=== PATIENT | female | born 1990 | race Caucasian/White ===

== ENCOUNTER 2018-07-21 12:28 | Day surgery (SDC) | payer MEDICAID, SELFPAY ==
[2018-07-21 13:02] LABS: Hematocrit 39.7 % (37-47); Hemoglobin 13.3 g/dl (12.0-15.0); Mean Corp Hgb Conc 33.5 g/gl (32-36); Mean Corpuscular Hgb 31.1 pg (27.0-32.0); Mean Corpuscular Volume 92.8 fL (81-99); Mean Platelet Vol. 11.5 fl (6.2-12.0); Platelet Count 140 K/mm3 (150-450); RBC Distribution Width CV 12.1 % (11.6-14.6); RBC Distribution Width SD 40.8 fl (35.1-43.9); Red Blood Count 4.28 M/mm3 (4.2-5.4); White Blood Count 5.3 K/mm3 (4.4-11.0)
[2018-07-21 13:07] LABS: Scan Indicated on CBC? Y/N NO
[2018-07-21 13:13] VITALS: BP 99/58; PULSE 83; RESP 14; TEMP 37.9; O2SAT 100; BMI 22.3
[2018-07-21] MEDS: Doxycycline 100 MG CAPSULE 200 MG PO (13:22)
--- NOTE | 2018-07-21 13:49 | DCINST_ITS ---
Discharge Diet: No Restrictions Discharge Activity: Return to Normal Activity, May Shower, May Take a Tub Bath - in 2 weeks. Allergies/Adverse Reactions: Allergies No Known Allergies Allergy (Verified 07/20/18 08:50) Medications to take at Discharge RX: Ibuprofen 800 mg PO PRN PRN 07/20/18 Primary Care Physician: Panchito Tucker [Primary Care Provider] - Test Results: Test results from this visit will be discussed in further detail at your follow- up appointment, if applicable.
--- NOTE | 2018-07-21 13:49 | PCM.OPRPT ---
Report of Operation Date of Procedure: 07/21/18 Pre-Operative Diagnosis: missed Post-Operative Diagnosis: same Surgery/Procedure Performed:: suction D&C Description of Surgical Findings:: Uterus 10 week size- 7mm suction catheter used. Minimal bleeding. Type of Anesthesia:: MAC Specimen's removed: products of conception Drains: none Estimated Blood Loss (mL): 10 Fluids Replaced: 500 Description of Procedure: After informed consent was obtained patient was taken to OR and placed in supine position. Anesthesia was given. patient was placed in yellow fin stirrups and prepped and draped in normal sterile fashion. bladder was drained with straight catheter with approximately 30cc of clear yellow urine expelled. Weighted speculum placed in posterior fornix of vaginal, single tooth tenaculum was used to gently grasped anterior lip of cervix. . Cervix was then gently dilated in an incremental fashion. Was adequate dilation was achieved the 7mm suction catheter was placed. suction curettage performed until no tissue was expelled and cavity was deemed empty. A very gentle curettage was performed-no tissue noted. The tissue was then sent to pathology for examination. No complications. At this time procedure was deemed complete and successful. Tenaculum removed, speculum removed. Good hemostasis appreciated. Vaginal sweep was negative. Instrument and lap count correct x 2. I anticipate normal postoperative course. RH positive. Grafts/Implants Used: none - Complications none - Admit VTE Documentation VTE Present on Admission: Yes VTE Mechan Device Prophylaxis: SCD's
[2018-07-21 14:21] VITALS: BP 114/68; BP 99/58; PULSE 63; RESP 16; TEMP 36.4; O2SAT 100
--- NOTE | 2018-07-21 14:25 | POC_PTH ---
PATIENT: RAMON FLORES LOC: [facility] [place] U#:[id number] AGE/SX: 27/F ROOM: RE07/21/[address]: Dr. Laurence Pagan, MDDOB: 1990 BED: DIS: 07/21/2018 SPEC #: [id number] RECD: 07/21/18 15:06 STATUS: MYLES KEV #: [id number] ANDRY: 07/21/18 14:[address]: Laurence Pagan DEPT: SURGICAL PATHOLOGY RECD BY: Familia Baker ENTERED: 07/22/18 12:28 SP TYPE: PROD CONC OTHR DR: Dr. Panchito Tucker MD Tissues: Product of conception, NOS Procedures: Surgery Specimen Level IV HEADER OPERATION: Dilation and curettage, suction PRE-OP DIAGNOSIS: Missed AB 7 weeks TISSUE SUBMITTED: Products of conception MICROSCOPIC DIAGNOSIS Products of conception: Decidua, gestational endometrium and immature chorionic villi (products of conception). ABDIFATAH:taylor 07/25/18 MICROSCOPIC DESCRIPTION Slides are reviewed. GROSS DESCRIPTION Received in fixative is one container labeled with the patient's name and designated products of conception. The specimen consists of multiple irregular fragments of putnam soft tissue that in aggregate measure 5 x 4 x 0.5 cm. The specimen is totally submitted in one cassette. tissue is not identified. Corporate Specialist tissue is submitted in two cassettes. / ABDIFATAH:taylor 07/22/18 TC:5 CPT: 56338
[2018-07-21 14:26] VITALS: BP 102/64; BP 99/58; PULSE 68; RESP 16; O2SAT 100
[2018-07-21 14:30] VITALS: BP 97/61; BP 99/58; PULSE 54; RESP 16; O2SAT 100
[2018-07-21 14:36] VITALS: BP 96/65; BP 99/58; PULSE 50; RESP 16; TEMP 37; O2SAT 100
[2018-07-21 15:02] VITALS: BP 99/58
== END 2018-07-21 15:12 | disposition home or self-care (01) ==
LOC: SDC 12:29 → AC 12:52
PROVIDERS: Family Provider Family Medicine; PCP Family Medicine; Referring Provider Obstetrics & Gynecology; Visit Provider Obstetrics & Gynecology
PROC: (CPT 59820; principal; 2018-07-21 14:15)
DX: O02.1 Missed abortion (principal); D50.9 Iron deficiency anemia, unspecified; F17.200 Nicotine dependence, unspecified, uncomplicated; Z3A.01 Less than 8 weeks gestation of pregnancy
CPT/HCPCS: 59820; 85027; 86850; 86900; 88305; J7120; J2405

== ENCOUNTER 2018-10-21 05:55 | Day surgery (SDC) | payer MEDICAID, SELFPAY ==
--- NOTE | 2018-10-19 16:53 | PCM.HP.BLA ---
History and Physical Date of Admission: 10/21/18 Janet Garrett is a 27 year old female who presents AUB s/p Suction D&C for missed ab approx 3 mo ago. Pt has been having irregular and heavier bleeding since that time. Pt denies fever or chills. Ultrasound shows uterine mass But HCG was negative. Question regarding retained clot with inflammatory process vs possible Retained POC. Pt will be undergoing hysteroscopy D&C. Pt was placed on doxycycline. ? PAST?MEDICAL?HISTORY PAST MEDICAL HISTORY Diagnosis Date ? Chlamydia infection 2008 ? Depression ? ? History of, last on medication in 2007 ? Mitral valve disorders(424.0) ? ? Diagnosed age < 10 years, no surgery ? Papanicolaou smear of cervix with atypical squamous cells of undetermined significance (ASC-US) 2009,03/2014 ? Papanicolaou smear of cervix with low grade squamous intraepithelial lesion (LGSIL) 2008 ? Tobacco use ? ? Quit 06/20/2018 ? PAST?SURGICAL?HISTORY PAST SURGICAL HISTORY Procedure Laterality Date ? INSERT INTRAUTERINE DEVICE ? 2008 ? ORAL SURGERY PROCEDURE ? ? ? [place] teeth removal ? SUCTION D & C ? 07/21/2018 ? Missed AB ? FAMILY?HISTORY FAMILY HISTORY Problem Relation Age of Onset ? Alcohol/Drug Father ? ? ETOH ? Heart Paternal Grandfather ? ? Cancer Paternal Grandfather ? ? LIVER CANCER ? Alcohol/Drug Brother ? ? ETOH ? Diabetes Paternal Aunt ? ? SOCIAL?HISTORY Social History Socioeconomic History Marital status: Single Spouse name: Not on file Number of children: 1 Years of education: 12 Highest education level: Not on file Social Needs Financial resource strain: Not on file Food insecurity - worry: Not on file Food insecurity - inability: Not on file Transportation needs - medical: Not on file Transportation needs - non-medical: Not on file Occupational History Occupation: CHANGE MANAGEMENT MANAGER Employer: [employer] Tobacco Use Smoking status: Current Every Day Smoker Years: 5.00 Types: Cigarettes Quit date: 06/20/2018 Years since quittin.3 Smokeless tobacco: Never Used Substance and Sexual Activity Alcohol use: No Drug use: No Sexual activity: Yes Partners: Male control/protection: None Other Topics Concerns: Not on file Social History Narrative Not on file ? CURRENT?MEDICATIONS ? Current Outpatient Medications: doxycycline monohydrate (MONODOX) 100 mg capsule Take 1 capsule by mouth twice daily for 7 days. ibuprofen (MOTRIN) 800 mg tablet Take 1 tablet by mouth every 8 hours as needed. FOR PAIN. PNV no.95/ferrous fum/folic ac ( ORAL) Take by mouth. ondansetron (ZOFRAN) 4 mg tablet Take 4 mg by mouth every 8 hours as needed. ? No current facility-administered medications for this visit. Allergies As of Date: 10/19/2018 Allergen Noted Reaction SEASONAL [OTHER] 10/05/2008 ? Fully Assessed 10/19/2018 ? ? REVIEW OF SYSTEMS Abdomen: No abdominal pain Bladder: no dysuria.. Expanded ROS: GENERAL: Negative for fever Allergies and current medication updated:Yes ? EXAM: BP 100/58 Ht 5' 6 (1.68m) Wt 140 lb (63.5kg) LMP 09/28/2018 BMI 22.61 kg/(m^2). ? GENERAL: pleasant, female in no apparent distress HEENT: Normocephalic and atraumatic NECK: full range of motion DERMATOLOGY: Normal, without lesions, non-icteric and non-hirsute CARDIAC: regular rate and rhythm CHEST: Clear to auscultation Normal inspiratory effort NEURO: alert and oriented x3,exam grossly non-focal ? Thickened endometrium. ?Heterogeneous solid material within it contains echogenic and cystic foci. ?Molar is a diagnostic possibility. ? Correlation with hCG recommended. Findings discussed with Dr. Ryan at 1725 Aircraft Pilot: AMINAH ? Transcribe Date/Time: Oct 17 2018 ?5:22P Dictated by : ROXIE CHINO MD This examination was interpreted and the report reviewed and electronically signed by: ROXIE CHINO MD on Oct 17 2018 ?5:26PM ?EST ? ? Results-Findings ? * * *Final Report* * * DATE OF EXAM: Oct 17 2018 ?3:16PM ? [facility] ? 1060 ?- ?US FEMALE PELVIS TRANSVAG ?/ PROCEDURE REASON: multiple diagnoses ?? ? * * * * Physician Interpretation * * * * ?EXAMINATION: ? TRANSVAGINAL AND LIMITED TRANSABDOMINAL PELVIC ULTRASOUND CLINICAL HISTORY: ?Positive test in August. ?Persistent irregular bleeding TECHNIQUE: Sonography of the pelvis was performed by transvaginal and transabdominal (limited) techniques. ?Images were obtained and stored in a permanent archive. MQ: ?UFP_1 COMPARISON: None RESULT: Uterus size: 8.4 x 7.1 x 4.9 cm ?? ? -Orientation: Anteverted ?? ? -Myometrium: Normal sonographic appearance. ?? ? -Endometrial echo complex: 1.7 cm . ?The endometrium is heterogeneous. ?Scattered ,numerous ,echogenic and cystic foci within it. There is no evidence of gestational sac or fetus within the uterus. ?? ? -Cervix: normal Right ovary: 3.2 x 2.3 x 2.5 cm ?Normal sonographic appearance. Left ovary: 2.3 x 1.9 x 2.5 cm ?Normal sonographic appearance. Pelvis free fluid: None. ? ASSESSMENT AND PLAN: Encounter Diagnosis ? ? ICD-10-CM ? 1. Abnormal uterine bleeding (AUB) N93.9 ? ? 2. Consent signed for Hysteroscopy, D&C 3. Pt has been counseled on risks/benefits and alternatives of surgery including but not limited to anesthesia, bleeding, infection, injury to pelvic structures including bowel, bladder, ureters and vessels. Pt wishes to proceed with surgery at this time. 4. Post op motrin ordered. ? Laurence Pagan MD ?
--- NOTE | 2018-10-19 16:57 | HP.PCM_ITS ---
History and Physical Date of Admission: 10/21/18 Janet Garrett is a 27 year old female who presents AUB s/p Suction D&C for missed ab approx 3 mo ago. Pt has been having irregular and heavier bleeding since that time. Pt denies fever or chills. Ultrasound shows uterine mass But HCG was negative. Question regarding retained clot with inflammatory process vs possible Retained POC. Pt will be undergoing hysteroscopy D&C. Pt was placed on doxycycline. ? PAST?MEDICAL?HISTORY PAST MEDICAL HISTORY Diagnosis Date ? Chlamydia infection 2008 ? Depression ? ? History of, last on medication in 2007 ? Mitral valve disorders(424.0) ? ? Diagnosed age < 10 years, no surgery ? Papanicolaou smear of cervix with atypical squamous cells of undetermined significance (ASC-US) 2009,03/2014 ? Papanicolaou smear of cervix with low grade squamous intraepithelial lesion (LGSIL) 2008 ? Tobacco use ? ? Quit 06/20/2018 ? PAST?SURGICAL?HISTORY PAST SURGICAL HISTORY Procedure Laterality Date ? INSERT INTRAUTERINE DEVICE ? 2008 ? ORAL SURGERY PROCEDURE ? ? ? [place] teeth removal ? SUCTION D & C ? 07/21/2018 ? Missed AB ? FAMILY?HISTORY FAMILY HISTORY Problem Relation Age of Onset ? Alcohol/Drug Father ? ? ETOH ? Heart Paternal Grandfather ? ? Cancer Paternal Grandfather ? ? LIVER CANCER ? Alcohol/Drug Brother ? ? ETOH ? Diabetes Paternal Aunt ? ? SOCIAL?HISTORY Social History Socioeconomic History Marital status: Single Spouse name: Not on file Number of children: 1 Years of education: 12 Highest education level: Not on file Social Needs Financial resource strain: Not on file Food insecurity - worry: Not on file Food insecurity - inability: Not on file Transportation needs - medical: Not on file Transportation needs - non-medical: Not on file Occupational History Occupation: HIGH SCHOOL TEACHER Employer: [employer] Tobacco Use Smoking status: Current Every Day Smoker Years: 5.00 Types: Cigarettes Quit date: 06/20/2018 Years since quittin.3 Smokeless tobacco: Never Used Substance and Sexual Activity Alcohol use: No Drug use: No Sexual activity: Yes Partners: Male control/protection: None Other Topics Concerns: Not on file Social History Narrative Not on file ? CURRENT?MEDICATIONS ? Current Outpatient Medications: doxycycline monohydrate (MONODOX) 100 mg capsule Take 1 capsule by mouth twice daily for 7 days. ibuprofen (MOTRIN) 800 mg tablet Take 1 tablet by mouth every 8 hours as neede d. FOR PAIN. PNV no.95/ferrous fum/folic ac ( ORAL) Take by mouth. ondansetron (ZOFRAN) 4 mg tablet Take 4 mg by mouth every 8 hours as needed. ? No current facility-administered medications for this visit. Allergies As of Date: 10/19/2018 Allergen Noted Reaction SEASONAL [OTHER] 10/05/2008 ? Fully Assessed 10/19/2018 ? ? REVIEW OF SYSTEMS Abdomen: No abdominal pain Bladder: no dysuria.. Expanded ROS: GENERAL: Negative for fever Allergies and current medication updated:Yes ? EXAM: BP 100/58 Ht 5' 6 (1.68m) Wt 140 lb (63.5kg) LMP 09/28/2018 BMI 22.61 kg/(m^2). ? GENERAL: pleasant, female in no apparent distress HEENT: Normocephalic and atraumatic NECK: full range of motion DERMATOLOGY: Normal, without lesions, non-icteric and non-hirsute CARDIAC: regular rate and rhythm CHEST: Clear to auscultation Normal inspiratory effort NEURO: alert and oriented x3,exam grossly non-focal ? Thickened endometrium. ?Heterogeneous solid material within it contains echogenic and cystic foci. ?Molar is a diagnostic possibility. ? Correlation with hCG recommended. Findings discussed with Dr. Ryan at 1725 Supervisor Phosphatic Fertilizer: AMINAH ? Transcribe Date/Time: Oct 17 2018 ?5:22P Dictated by : ROXIE CHINO MD This examination was interpreted and the report reviewed and electronically signed by: ROXIE CHINO MD on Oct 17 2018 ?5:26PM ?EST ? ? Results-Findings ? * * *Final Report* * * DATE OF EXAM: Oct 17 2018 ?3:16PM ? [facility] ? 1060 ?- ?US FEMALE PELVIS TRANSVAG ?/ PROCEDURE REASON: multiple diagnoses ?? ? * * * * Physician Interpretation * * * * ?EXAMINATION: ? TRANSVAGINAL AND LIMITED TRANSABDOMINAL PELVIC ULTRASOUND CLINICAL HISTORY: ?Positive test in August. ?Persistent irregular bleeding TECHNIQUE: Sonography of the pelvis was performed by transvaginal and transabdominal (limited) techniques. ?Images were obtained and stored in a permanent archive. MQ: ?UFP_1 COMPARISON: None RESULT: Uterus size: 8.4 x 7.1 x 4.9 cm ?? ? -Orientation: Anteverted ?? ? -Myometrium: Normal sonographic appearance. ?? ? -Endometrial echo complex: 1.7 cm . ?The endometrium is heterogeneous. ?Scattered ,numerous ,echogenic and cystic foci within it. There is no evidence of gestational sac or fetus within the uterus. ?? ? -Cervix: normal Right ovary: 3.2 x 2.3 x 2.5 cm ?Normal sonographic appearance. Left ovary: 2.3 x 1.9 x 2.5 cm ?Normal sonographic appearance. Pelvis free fluid: None. ? ASSESSMENT AND PLAN: Encounter Diagnosis ? ? ICD-10-CM ? 1. Abnormal uterine bleeding (AUB) N93.9 ? ? 2. Consent signed for Hysteroscopy, D&C 3. Pt has been counseled on risks/benefits and alternatives of surgery including but not limited to anesthesia, bleeding, infection, injury to pelvic structures including bowel, bladder, ureters and vessels. Pt wishes to proceed with surgery at this time. 4. Post op motrin ordered. ? Laurence Pagan MD ?
[2018-10-21] VITALS (7 sets, daily range): BP systolic 93–112; BP diastolic 47–68; PULSE 53–68; RESP 16–18; TEMP 36.4–37.3; O2SAT 100; BMI 22.2
[2018-10-21 06:24] LABS: Internal QC Validated? YES +Cl - CLEAR BKGD; Pregnancy, Urine Negative Negative
--- NOTE | 2018-10-21 07:25 | PCM.DC.D&C ---
Discharge Diet: No Restrictions Discharge Activity: Return to Normal Activity, May Shower, May Take a Tub Bath - in 2 weeks. May resume sexual activity in: 2 weeks Call your doctor if you observe: Fever of 101 or Higher, Using more than one pad per hour Allergies/Adverse Reactions: Allergies No Known Allergies Allergy (Verified 10/19/18 13:43) Medications to take at Discharge Ibuprofen 800 mg PO PRN PRN 07/20/18 Primary Care Physician: Panchito Tucker [Primary Care Provider] - Test Results: Test results from this visit will be discussed in further detail at your follow-up appointment, if applicable. Please Follow Up With: Laurence Pagan MD When: 2 weeks
--- NOTE | 2018-10-21 07:30 | EMB_PTH ---
PATIENT: RAMON FLORES LOC: [facility] – [place] U#:[id number] AGE/SX: 27/F ROOM: RE10/21/[address]: Dr. Laurence Pagan, MDDOB: 1990 BED: DIS: 10/21/2018 SPEC #: [id number] RECD: 10/21/18 11:19 STATUS: MYLES KEV #: [id number] ANDRY: 10/21/18 07:[address]: Laurence Pagan DEPT: SURGICAL PATHOLOGY RECD BY: Familia Baker ENTERED: 10/21/18 12:38 SP TYPE: ENDOM BX/C OTHR DR: Dr. Panchito Tucker MD Tissues: Endometrium, NOS Procedures: Surgery Specimen Level IV HEADER OPERATION: Hysteroscopy, dilation and curettage PRE-OP DIAGNOSIS: Abnormal uterine bleeding TISSUE SUBMITTED: Endometrial curettings MICROSCOPIC DIAGNOSIS Endometrial curettings: Fragments of inflamed benign endometrial tissue. Fragments of infarcted decidual tissue, immature chorionic villi tissue and blood clots (consistent with retained products of conception). See comment. SJ:taylor 10/24/18 COMMENT The smaller fragments of tissue consist of endometrial tissue and infarcted immature chorionic villi tissue and decidual tissue. The larger ovoid fragment of tissue entirely consists of infarcted immature chorionic villi tissue with calcification and infarcted decidual tissue embedded in the blood clot. Please make reference to previous specimen ([id number]) products of conception with diagnosis of decidua, gestational endometrium and immature chorionic villi (products of conception). Clinical correlation and appropriate follow up are necessary. Case has been reviewed in consultation with Dr. Spivey who concurs with the above diagnosis. IDC:AM MICROSCOPIC DESCRIPTION Slides are reviewed. GROSS DESCRIPTION Received in fixative is one container labeled with the patient's name and designated endometrial curettings. The specimen consists of an ovoid fragment of reddish-putnam tissue measuring 3 x 2.5 x 1.8 cm. Also present separate in the container are multiple irregular fragments of reddish-putnam soft tissue aggregating to 2 x 1.5 x 0.2 cm. Dining Room Attendant Cafeteria sections are submitted as follows: 1 - smaller fragments of tissue in the container, 2-4 - outbound telemarketing representative sections of nodular fragments of tissue in container. / AAMIR:taylor 10/21/18 TC:5 CPT: 16972
--- NOTE | 2018-10-21 07:53 | OP.PCM_ITS ---
Report of Operation Date of Procedure: 10/21/18 Pre-Operative Diagnosis: AUB Post-Operative Diagnosis: AUB Surgery/Procedure Performed:: hysteroscopy, D&C Description of Surgical Findings:: large well organized clot sitting in posterior vagina on exam- approx 4cm. ON hysteroscopy some tiny calcifications studding noted at uterine fundus, both ostia visualized, no masses. small amount of endometrial tissue noted Type of Anesthesia:: MAC Special Medications: none Specimen's removed: Endometrial curettings Drains: none Estimated Blood Loss (mL): 5 Fluids Replaced: 500 Description of Procedure: Informed consent was obtained the patient was taken the operating room she was placed in supine position. She was given anesthesia. She was then placed in the [facility] where she was prepped and draped in the normal sterile fashion. EUA performed- large mass removed from posterior fornix of vagina- mass appeared to be well organized clot. At this time the weighted speculum was placed in the posterior fornix of vagina. Single-tooth tenaculum was used to gently grasp the anterior lip the cervix. At this time the uterine cavity was sounded to approximately 8 cm. Gentle dilatation was performed once adequate dilatation of the cervix was achieved the hysteroscope using normal saline as a distention medium was placed. tiny calcifications noted on uterine funuds taht appeared in a studding presentation. small amount of Endometrial tissue . Otherwise no gross abnormalities. Tubal ostia visualized. This time hysteroscopy was complete. Gentle Sharp curettage was performed. small amount of endometrial tissue removed. This will be sent to pathology for evaluation including the well organized clot. Procedure was deemed complete successful there are no complications. Anticipated normal postoperative course. Instrument lap count correct ?2. vaginal sweep negative. Grafts/Implants Used: none - Complications none - Admit VTE Documentation VTE Present on Admission: Yes VTE Mechan Device Prophylaxis: SCD's VTE Pharm Prophylaxis ordered?: No Reason prophylaxis not ordered:: Treatment Not Indicated
[2018-10-21] MEDS: HYDROcodone Bitartrate/Apap 5/325 Tablet PO (08:40)
== END 2018-10-21 09:15 | disposition home or self-care (01) ==
LOC: SDC 05:56 → AC 05:58
PROVIDERS: Anesthesiology; Family Provider Family Medicine; PCP Family Medicine; Referring Provider Obstetrics & Gynecology; Visit Provider Obstetrics & Gynecology
PROC: 0UDB8ZZ Extraction of Endometrium, Via Natural or Artificial Opening Endoscopic (ICD-10-PCS; CPT 58558; principal; 2018-10-21 07:15)
DX: N93.9 Abnormal uterine and vaginal bleeding, unspecified (principal); F17.210 Nicotine dependence, cigarettes, uncomplicated; D64.9 Anemia, unspecified
CPT/HCPCS: 58558; 81025; 88305; J7120; J2405

== ENCOUNTER → 2019-05-08 11:42 | Outpatient (CLI) | payer MEDICAID, SELFPAY ==
[2018-10-21 06:48] VITALS: BMI 22.2
== END ==
PROVIDERS: Family Provider Family Medicine; PCP Family Medicine; Referring Provider Obstetrics & Gynecology; Visit Provider Obstetrics & Gynecology
DX: Z31.430 Encounter of female for testing for genetic disease carrier status for procreative management (principal)
CPT/HCPCS: 36415

== ENCOUNTER 2019-12-19 20:40 | Outpatient (CLI) | payer MEDICAID, SELFPAY ==
[2018-10-21 06:48] VITALS: BMI 22.2
[2019-12-19 20:47] VITALS: BMI 25.5
[2019-12-19 20:58] VITALS: BP 109/66; PULSE 78; TEMP 36.1
[2019-12-19 21:56] VITALS: TEMP 36
[2019-12-19 21:57] VITALS: BP 100/54; PULSE 63
[2019-12-19 22:42] VITALS: BP 98/61; PULSE 73; TEMP 36.1
--- NOTE | 2019-12-21 08:06 | OB.TRI.NOTE ---
History of Present Illness Date of Service: 12/19/19 Was patient seen by the physician?: No Reason For Visit: R/O LABOR Date of Service: 12/19/19 Final RAFAEL: 12/23/19 Gestational age: 39 Weeks and 5 Days History of Present Illness: @ 39.3 c/o contractions Allergies No Known Allergies Allergy (Verified 12/19/19 21:06) Physical Exam Vitals: Vital Signs Temp Pulse BP 97.0 F L 73 98/61 12/19/19 22:42 12/19/19 22:42 12/19/19 22:42 Presentation: Cephalic Cervix Dilation (cm): 3 NST - FHR Rate Baby A Baseline: 120 Variability:: Moderate Accelerations:: 15 x 15 Decelerations:: None NST Reactive:: Yes FHR Category:: Category I Uterine Activity:: q2-4 Impression/Plan @ 39.3 wks, false labor 1) dc home- vaginal exam unchanged
== END 2019-12-19 23:05 | disposition home or self-care (01) ==
LOC: WPOUT 20:45 → OBT 20:45
PROVIDERS: PCP Family Medicine; Visit Provider Obstetrics & Gynecology
DX: O47.1 False labor at or after 37 completed weeks of gestation (principal); Z3A.39 39 weeks gestation of pregnancy
CPT/HCPCS: 59025; 59050; 99218; G0378

== ENCOUNTER 2019-12-23 05:10 | Inpatient (IN) | payer MEDICAID, SELFPAY ==
[2019-12-23] VITALS (18 sets, daily range): BP systolic 94–120; BP diastolic 53–74; PULSE 48–77; RESP 14–16; TEMP 36.2–37.2; O2SAT 96–99; BMI 25.4
[2019-12-23] MEDS: Lactated Ringers 1,000 ML 50 ML IV (05:25)
[2019-12-23 06:14] LABS: Absolute Lymphocyte Count 2.16 X10^3/uL (0.83-4.51); Basophil# 0.03 X10^3/uL; Basophil% 0.4 % (0-1); Eosinophil# 0.13 X10^3/uL; Eosinophils% 1.6 % (0-5); Hematocrit 36.3 % (37-47); Hemoglobin 12.1 g/dL (12.0-15.0); Lymphocyte # 2.16 X10^3/ul (4.0); Lymphocyte % 27.3 % (19-41); Mean Corp Hgb Conc 33.3 g/dL (32-36); Mean Corpuscular Hgb 33.3 pg (27.0-32.0); Mean Platelet Vol. 12.1 fl (6.2-12.0); Monocyte# 0.56 X10^3/uL; Monocyte% 7.1 % (0-10); NRBC Flagged by Analyzer 0 % (0-5); Neutrophil % 63.1 % (47-70); POSITIVE COUNT YES; RBC Distribution Width CV 12.5 % (11.6-14.6); RBC Distribution Width SD 45.1 fl (35.1-43.9); Red Blood Count 3.63 M/mm3 (4.2-5.4); White Blood Count 7.9 K/mm3 (4.4-11.0)
[2019-12-23 06:24] LABS: Differential Indicated SCAN CRITERIA MET
[2019-12-23 07:01] LABS: Platelet Count 135 K/mm3 (150-450)
[2019-12-23] MEDS: Oxytocin 30 units/NS 500 ml 30 UNITS/500 ML IV.SOLN IV (07:06)
[2019-12-23] MEDS: Oxytocin 30 units/NS 500 ml 30 UNITS/500 ML IV.SOLN 334 UNITS IV (09:02)
--- NOTE | 2019-12-23 09:15 | PCM.OPRPT ---
Vaginal Delivery Maternal Presentation: Active Labor Amniotic Membrane Rupture Type: Artificial Amniotic Fluid Description: Clear Final RAFAEL: 12/23/19 Final RAFAEL Source: US <20 weeks Gestational age: 40 Weeks and 0 Days Date of Procedure: 12/23/19 Pre-Operative Diagnosis: labor Post-Operative Diagnosis: same Surgery/ Procedure Performed: Spontaneous Vaginal Delivery Type of Anesthesia: None Description of Procedure: A vigorous female was delivered ALYSE over intact perineum. The remainder the was delivered with maternal pushing and gentle traction only in less than 15 seconds. The Pitocin infusion was initiated for active management of the third stage. The cord was clamped and cut after pulsations ceased. The infant was attended to by the waiting nursing staff. The placenta was delivered spontaneously and intact. The cervix and vagina were intact. The first-degree vaginal laceration was hemostatic and not repaired. Sponge and needle counts were correct. A vaginal sweep was completed by me. Presentation: ALYSE Placental Delivery Description: Spontaneous Placenta Disposition: [facility] Cord Vessel Description: 3 Vessels Cord Entanglement: None Drain: - - none Estimated Blood Loss: 400 Infant A gender: Female - Eveline Episiotomy Description: None Laceration: 1st degree - vaginal Medications given after delivery: IV Pitocin Complications: None
--- NOTE | 2019-12-23 09:17 | PCM.HP.OB ---
History Date of Admission: 10/21/18 Final RAFAEL: 12/23/19 Final RAFAEL Source: US <20 weeks Gestational age: 40 Weeks and 0 Days History of this : This is a 29 year-old, 5 para 1-0-3-1 presents at 40 weeks gestation complaining contractions that increased at approximately 3 AM. She had no gross vaginal bleeding. She is had good movement. Her abdomen was found to be 4 cm and 80% effaced but frances painfully and was admitted for labor. During the , patient had hour but a normal 3-hour glucose tolerance test. Found to be rubella nonimmune, and she was treated for HPV. She was smoking during the but stopped it during the . Had a history of one previously uncomplicated vaginal delivery in the past. Allergies No Known Allergies Allergy (Verified 12/19/19 21:06) Home Medications: Home Medications Tablet 1 tab PO DAILY 12/19/19 Smoking Status: Former smoker Alcohol: None Number of Fetus(es): 1 History Past Pregnancies: Past Pregnancies Delivery Date Name GA/ Weeks Outcome Route Wt Infant Sex Labor Length Anesthesia Delivery Location Provider FOB Expected Infant Delivery Method: Spontaneous Vaginal Review of Systems Constitutional: Denies: Chills, Fever Eyes: Denies: Blurred vision Cardiovascular: Denies: Chest Pain Respiratory: Denies: Shortness of Breath Gastrointestinal: Denies: Diarrhea Genitourinary: Denies: Dysuria Skin: Denies: Rash Hematologic/ Lymphatic: Denies: Anemia Physical Exam Vitals: Vital Signs Temp Pulse BP Pulse Ox 98.0 F 65 105/57 L 99 12/23/19 06:41 12/23/19 09:13 12/23/19 09:13 12/23/19 06:41 General: Alert, Cooperative, No apparent distress Cardiovascular: Regular rate Lungs: Normal air movement Abdomen: Soft, Non Tender, Non-Distended, Gravid Extremities:: No edema Neurological: Neuro grossly intact, Muscle tone normal Assessment/Plan This is a 29 year-old, 5 para 1 at 40 weeks with spontaneous labor. Patient declined rapid COVID19 testing. Estimated weight is less than 4500 g clinically, pelvis clinically adequate to expect vaginal delivery. Group B strep positive, antibiotics initiated.
[2019-12-23] MEDS: Acetaminophen 500 MG Tablet 1000 MG PO (14:50)
[2019-12-23] MEDS: Senna/Docusate Sodium 1 Tablet PO (20:44)
[2019-12-24 03:41] VITALS: BP 103/57; PULSE 50; RESP 14; TEMP 36.2
[2019-12-24] MEDS: Naproxen 250 MG Tablet 500 MG PO (03:55)
[2019-12-24 07:57] VITALS: BP 93/54; PULSE 63; RESP 16; TEMP 36.6; O2SAT 99
--- NOTE | 2019-12-24 08:09 | PCM.PN.OB ---
Subjective: Pain well controlled, average lochia. No nausea or vomiting. - Physical Exam Vitals/I&O's: Vital Signs Temp Pulse Resp BP Pulse Ox 97.8 F 63 16 93/54 L 99 12/24/19 07:57 12/24/19 07:57 12/24/19 07:57 12/24/19 07:57 12/24/19 07:57 Oxygen Delivery Method Room Air Weight: 73.754 kg Body Mass Index (BMI) 25.4 Intake and Output for Last 24 Hours 12/22/19 12/23/19 12/24/19 23:59 23:59 23:59 Intake Total 865.65 / 865.65 Output Total 400 / 400 Balance 465.65 / 465.65 General: Alert, Cooperative, No apparent distress Current Medications Acetaminophen (Tylenol) 1,000 mg PO Q8H PRN PRN PRN Reason: Pain Score 1-3/10 Last Admin: 12/23/19 14:50 Dose: 1,000 mg Documented by: Bisacodyl (Dulcolax) 10 mg RECTAL UD PRN PRN Reason: If no BM Dibucaine (Dibucaine) 1 applic TOPICAL TID PRN PRN; Protocol PRN Reason: Discomfort Hydrocortisone (Hytone) 1 applic TOPICAL TID PRN PRN; Protocol PRN Reason: Discomfort Methylergonovine Maleate (Methergine) 0.2 mg IM X1 PRN PRN Reason: Excess bleeding/uterine atony Naproxen (Naprosyn) 500 mg PO Q8H PRN PRN PRN Reason: Pain Score 1-3/10 Last Admin: 12/24/19 03:55 Dose: 500 mg Documented by: Ondansetron HCl (Zofran) 4 mg IV Q4H PRN PRN PRN Reason: Nausea Prochlorperazine Edisylate (Compazine Iv) 10 mg IV Q6H PRN PRN PRN Reason: NAUSEA/VOMITING Senna/Docusate Sodium (Senokot-S, Rosa-Colace) 1 - 2 tablet PO DAILY PRN PRN PRN Reason: Constipation Last Admin: 12/23/19 20:44 Dose: 2 tablet Documented by: Simethicone (Mylicon) 80 mg PO PCHS PRN PRN Reason: Indigestion/Stomach pain Sodium Chloride () 5 - 15 ml IV UD PRN PRN Reason: SALINE FLUSH Medical Necessity - Tobacco Use Smoking Status: Former smoker Assessment/Plan day 1 status post vaginal delivery Doing well. Infant is breast-feeding and doing well. She would like to be discharged today, okay from maternal standpoint if okay with pediatrics.
--- NOTE | 2019-12-24 08:20 | DCINST_ITS ---
Discharge Diet: No Restrictions Discharge Activity: Return to Normal Activity, May not drive while taking narcotic pain medications., May Shower May resume sexual activity in: 4-6 weeks Additional Activity Instructions:: Nothing in the vagina for 4-6 weeks. You may return to work/school in 6 weeks. Call your doctor if your incision/area has: Continuous Slow Oozing, Sudden Increased Bleeding, Increased Pain/ Swelling, Increased Redness, Foul Smelling Discharge Additional Instructions: If you experience any of the following, contact your healthcare provider. * Bleeding that soaks a pad every hour for 2 hours * Fever 100.4 or higher * Unrelieved incision or abdominal pain * Swelling, redness, discharge or bleeding from your incision or episiotomy site * Your incision begins to separate * Problems urinating (including inability to urinate or burning while urinating). * Visual changes * Severe headache * Flu-like symptoms * Pain or redness in one of both of your breasts * Pain, warmth, tenderness or swelling in your legs, especially the calf area * Frequent nausea and vomiting * Symptoms of depression or anxiety If you experience any of the following, call 911 or go to the nearest Emergency Room. * Chest pain * Problems breathing * Seizure activity * Partial or complete paralysis of a body part, slurred speech, weakness or drooping of the face, or a sudden inability to walk or hold your balance Allergies/Adverse Reactions: Allergies No Known Allergies Allergy (Verified 12/19/19 21:06) Medications to take at Discharge Tablet 1 tab PO DAILY 12/19/19 Please Follow Up With: Lissa Shetty MD - [phone] When: Call to make an appointment with your doctor's office in 1-2 and 6 weeks or as needed Primary Care Physician: Panchito Tucker MD [Primary Care Provider] - Test Results: Test results from this visit will be discussed in further detail at your follow- up appointment, if applicable.
--- NOTE | 2019-12-24 08:20 | PCM.DCVAG ---
Discharge Diet: No Restrictions Discharge Activity: Return to Normal Activity, May not drive while taking narcotic pain medications., May Shower May resume sexual activity in: 4-6 weeks Additional Activity Instructions:: Nothing in the vagina for 4-6 weeks. You may return to work/school in 6 weeks. Call your doctor if your incision/area has: Continuous Slow Oozing, Sudden Increased Bleeding, Increased Pain/ Swelling, Increased Redness, Foul Smelling Discharge Additional Instructions: If you experience any of the following, contact your healthcare provider. Bleeding that soaks a pad every hour for 2 hours Fever 100.4 or higher Unrelieved incision or abdominal pain Swelling, redness, discharge or bleeding from your incision or episiotomy site Your incision begins to separate Problems urinating (including inability to urinate or burning while urinating). Visual changes Severe headache Flu-like symptoms Pain or redness in one of both of your breasts Pain, warmth, tenderness or swelling in your legs, especially the calf area Frequent nausea and vomiting Symptoms of depression or anxiety If you experience any of the following, call 911 or go to the nearest Emergency Room. Chest pain Problems breathing Seizure activity Partial or complete paralysis of a body part, slurred speech, weakness or drooping of the face, or a sudden inability to walk or hold your balance Allergies/Adverse Reactions: Allergies No Known Allergies Allergy (Verified 12/19/19 21:06) Medications to take at Discharge Tablet 1 tab PO DAILY 12/19/19 Please Follow Up With: Lissa Shetty MD - [phone] When: Call to make an appointment with your doctor's office in 1-2 and 6 weeks or as needed Primary Care Physician: Panchito Tucker MD [Primary Care Provider] - Test Results: Test results from this visit will be discussed in further detail at your follow-up appointment, if applicable.
[2019-12-24 14:02] VITALS: BP 90/48; PULSE 58; RESP 16; TEMP 36.7; O2SAT 100
== END 2019-12-24 15:05 | disposition home or self-care (01) | DRG 560 ==
PROVIDERS: Admitting Provider Obstetrics & Gynecology; PCP Family Medicine; Referring Provider Obstetrics & Gynecology; Visit Provider Obstetrics & Gynecology
DX: O70.0 First degree perineal laceration during delivery (principal); O99.824 Streptococcus B carrier state complicating childbirth; O99.334 Smoking (tobacco) complicating childbirth; F17.200 Nicotine dependence, unspecified, uncomplicated; Z37.0 Single live birth; Z3A.40 40 weeks gestation of pregnancy
CPT/HCPCS: 59025; 59050; 85025; 86850; 86900; 86901; 99218; J7120; G0378